=== PATIENT | female | born 1980 | race Caucasian/White ===

== ENCOUNTER 2017-06-06 17:13 | Emergency (ER) | payer MEDICAID ==
[2017-06-06] MEDS: IBUPROFEN 800 MG TAB PO (19:27)
== END 2017-06-06 20:37 | disposition home or self-care (01) ==
LOC: FTE 17:13
DX: R07.89 Other chest pain (principal); I10 Essential (primary) hypertension
CPT/HCPCS: 71045; 93005; 99284-25